=== PATIENT | male | born 1980 | race American Indian/Alaskan Native ===

== ENCOUNTER 2020-03-13 11:14 | Emergency (ER) | payer BC ==
[2020-03-13] MEDS ORDERED: Orphenadrine 100 MG Tab.ER PO ONE (11:42)
[2020-03-13] MEDS ORDERED: Ketorolac 30 MG/ML SDV IM ONE (11:42)
--- NOTE | 2020-03-13 11:51 | EDM.PDOC ---
ED HPI GENERAL MEDICAL PROBLEM - General Chief Complaint: Back Pain or Injury Stated Complaint: [facility] Time Seen by Provider: 03/13/20 11:23 Source of Information: Reports: Patient, EMS Notes Reviewed, RN Notes Reviewed History Limitations: Reports: No Limitations - History of Present Illness INITIAL COMMENTS - FREE TEXT/NARRATIVE: Patient is a 39-year-old male who presents to the ED via [facility] for the evaluation of his lower back pain. Patient notes that around 7 this morning, he was putting the garbage into the dumpster; they had a junk TV, he went to lift his TV and thought it was heavier than it was, and he threw it over his head with a little excessive force due to the lightness, and then he states he felt a pinch or twinge in his back. He has been having pain in his lower mid back ever since then, he points to right about the top of his hip bones at this time. He has no numbness or tingling into his extremities, the pain does not seem to radiate anywhere. He does state that he went home and laid on his bed for a while, but then he found it difficult to get up and move. He did not take any pain medications prior to coming to the ER he states that he has had issues like this once before in the past. He denies any other sick-like symptoms, fever/chills, cough/shortness of breath, nausea/vomiting/diarrhea. He notes that this pain is more of a cramping/squeezing/gripping type pain rather than a sharp stabbing pain. - Related Data Allergies Allergy/AdvReac Type Severity Reaction Status Date / Time No Known Allergies Allergy Verified 03/13/20 11:18 Home Meds: Home Meds Orphenadrine [Norflex] 100 mg PO BID PRN #20 tab 03/13/20 [Rx] traMADol [Ultram] 50 mg PO Q6H PRN #20 tab 03/13/20 [Rx] Past Medical History Musculoskeletal History: Reports: Back Pain, Chronic Social & Family History - Family History Family Medical History: Noncontributory - Tobacco Use Smoking Status *Q: Former Smoker Years of Tobacco use: 18 Packs/Tins Daily: 1 Used Tobacco, but Quit: Yes Month/Year Tobacco Last Used: 02/15/2020 ED ROS GENERAL - Review of Systems Review Of Systems: Comprehensive ROS is negative, except as noted in HPI. ED EXAM,LOWER BACK PAIN/INJURY - Physical Exam Exam: See Below Exam Limited By: No Limitations General Appearance: Alert, WD/WN, No Apparent Distress Eye Exam: Bilateral Eye: EOMI, Normal Inspection, PERRL Respiratory/Chest: No Respiratory Distress, Lungs Clear, Normal Breath Sounds, No Accessory Muscle Use, Chest Non-Tender Cardiovascular: Normal Peripheral Pulses, Regular Rate, Rhythm, No Murmur GI/Abdominal: Normal Bowel Sounds, Soft, Non-Tender, No Distention, No Mass Extremities: Normal Inspection, Normal Capillary Refill Neurological: Alert, Normal Mood/Affect, Normal Dorsiflexion, Normal Plantar Flexion, No Motor/Sensory Deficits, Oriented x 3. No: Straight Leg Raise (L), Straight Leg Raise (R), Saddle Anesthesia Psychiatric: Normal Affect, Normal Mood Skin Exam: Warm, Dry, Intact, Normal Color, No Rash Course - Vital Signs Last Recorded V/S: Last Vital Signs Temp 98.7 F 03/13/20 11:15 Pulse 78 03/13/20 11:15 Resp 18 03/13/20 11:15 BP 170/100 H 03/13/20 11:15 Pulse Ox 98 03/13/20 11:15 - Orders/Labs/Meds Meds: Medications Discontinued Medications Generic Name Dose Route Start Last Admin Trade Name Corinne PRN Reason Stop Dose Admin Ketorolac Tromethamine 60 mg 03/13/20 11:42 03/13/20 11:51 Toradol IM 03/13/20 11:43 60 mg ONETIME ONE Administration Ketorolac Tromethamine Confirm 03/13/20 11:53 03/13/20 12:06 Toradol Administered 03/13/20 11:54 Not Given Dose 30 mg .ROUTE .STK-MED ONE Orphenadrine Citrate 100 mg 03/13/20 11:42 03/13/20 11:51 Norflex PO 03/13/20 11:43 100 mg ONETIME ONE Administration Tramadol HCl 50 mg 03/13/20 12:47 03/13/20 13:01 Ultram PO 03/13/20 12:48 50 mg ONETIME ONE Administration - Re-Assessments/Exams Free Text/Narrative Re-Assessment/Exam: 03/13/20 11:52 Patient presents to the ED for the evaluation of his back pain. I do highly believe that he probably strained a muscle in his back causing issues. Have ordered Toradol and Norflex for initial management. Will reassess once the meds have been given time to work. 03/13/20 12:47 Patient was reassessed at bedside, and states that his pain is a little bit better, but he still having difficulty moving around much at all. I have ordered 50 mg p.o. tramadol for ongoing pain management to see if this helps h im. 03/13/20 13:30 Patient reported more relief with the tramadol. He was able to move a little bit more in the room. We will discharge him home with a prescription for tramadol, and Norflex and given a work note for this week. Departure - Departure Time of Disposition: 13:35 Disposition: Home, Self-Care 01 Condition: Good Clinical Impression: Low back pain Qualifiers: Chronicity: acute Back pain laterality: left Sciatica presence: without sciatica Qualified Code(s): M54.5 - Low back pain - Discharge Information *PRESCRIPTION DRUG MONITORING PROGRAM REVIEWED*: Yes *COPY OF PRESCRIPTION DRUG MONITORING REPORT IN PATIENT JG: No Instructions: Back Injury Prevention, [id number], Acute Back Pain, Adult Forms: ED Department Discharge, ED Return to Work/School Form Additional Instructions: You have been evaluated in the ED for your low back pain. Your symptoms are most likely musculoskeletal strain in nature. You were given a prescription for Norflex, a muscle relaxer, please take as directed. Please use ice/heat as tolerated to the affected area. You may take Tylenol 500 mg or ibuprofen 600mg q6 hrs for pain relief. Please do so until you have a tolerable level of pain with activity. Do not exceed 4000mg Tylenol or 3200mg ibuprofen in a 24 hour time period. You were given a prescription for a strong pain medication, Tramadol 50mg, please take 1 tab every 6 hours as needed for pain not relieved by Tylenol or ibuprofen alone. These medications can be addictive, so please take as few as possible to achieve adequate pain control. These meds can also be quite constipating, recommend that you increase your oral fluid intake and take a stool softener like MiraLAX while taking these medications. Do not drive while taking this medication. Please return to ED if your symptoms should change or worsen. Sepsis Event Note (ED) - Evaluation Sepsis Screening Result: No Definite Risk - Focused Exam Vital Signs: Vital Signs Temp Pulse Resp BP Pulse Ox 03/13/20 11:15 98.7 F 78 18 170/100 H 98
[2020-03-13] MEDS ORDERED: Ketorolac 30 MG/ML SDV ONE (11:53)
[2020-03-13] MEDS ORDERED: traMADol 50 MG Tab PO ONE (12:47)
== END 2020-03-13 13:50 | disposition home or self-care (01) ==
LOC: JD.ED 11:14
DX: M54.5 Low back pain (principal); Z87.891 Personal history of nicotine dependence
CPT/HCPCS: 96372; 99284; A9270; J1885; 99283

== ENCOUNTER 2021-01-08 18:23 | Emergency (ER) | payer BC, OTHER ==
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
== END 2021-01-08 20:00 | disposition home or self-care (01) ==
LOC: JD.ED 18:23
DX: Z04.1 Encounter for examination and observation following transport accident (principal); Z72.0 Tobacco use
CPT/HCPCS: 99282

== ENCOUNTER 2022-08-19 17:08 | Emergency (ER) | payer SELFPAY ==
[2022-08-19] MEDS ORDERED: HYDROmorphone 1 MG/ML Syringe IM ONE (18:00)
[2022-08-19] MEDS ORDERED: Lidocaine 1% 10 ML MDV INJECT ONE (18:00)
== END 2022-08-19 19:29 | disposition home or self-care (01) ==
LOC: JD.ED 17:08
DX: S52.502A Unspecified fracture of the lower end of left radius, initial encounter for closed fracture (principal); S52.612A Displaced fracture of left ulna styloid process, initial encounter for closed fracture; W00.0XXA Fall on same level due to ice and snow, initial encounter; Y93.01 Activity, walking, marching and hiking; Y92.009 Unspecified place in unspecified non-institutional (private) residence as the place of occurrence of the external cause
CPT/HCPCS: 29125; 73110-26-LT; 73110-LT; 99283

== ENCOUNTER 2022-09-03 15:48 | Emergency (ER) | payer SELFPAY ==
[2022-09-03] MEDS ORDERED: Sodium Chloride 0.9% 10 ML Syringe FLUSH PRN (16:08)
[2022-09-03] MEDS ORDERED: Sodium Chloride 0.9% 1,000 ML IV STA ×2 (16:19→17:51)
[2022-09-03] MEDS ORDERED: Insulin Regular, Human 100 Units/ML 3 ML Vial SUBCUT ONE (17:31)
[2022-09-03 17:33] LABS: HEMOGLOBIN A1C 11.9 %
[2022-09-03] MEDS ORDERED: Insulin Glargine,Human Rec. Analog 100 Units/ML 3 ML Pen SUBCUT ONE (19:52)
== END 2022-09-03 20:13 | disposition home or self-care (01) ==
LOC: JD.ED 15:48
DX: E11.65 Type 2 diabetes mellitus with hyperglycemia (principal); Z87.891 Personal history of nicotine dependence; Z79.84 Long term (current) use of oral hypoglycemic drugs
CPT/HCPCS: 36415; 80053; 81001; 82009; 82947; 83036; 85025; 96360; 96361; 99283; J1815; J3490; J7030

== ENCOUNTER 2022-10-14 21:52 | Emergency (ER) | payer SELFPAY | END 2022-10-14 22:45 | disposition home or self-care (01) | LOC: MERGE 21:52 → JD.ED 21:52 | DX: F10.10 Alcohol abuse, uncomplicated (principal) | CPT/HCPCS: 99283 ==

== ENCOUNTER 2023-01-07 13:51 | Emergency (ER) | payer MEDICAID, OTHER ==
[2023-01-07 14:29] LABS: BASOPHILS ABSOLUTE AUTO 0.01 K/mm3 (0.01-0.08); BASOPHILS PERCENT AUTO 0.2 % (0.1-1.2); EOSINOPHILS ABSOLUTE AUTO 0.11 K/mm3 (0.04-0.54); EOSINOPHILS PERCENT AUTO 2.4 (0.8-7.0); HEMATOCRIT 47.8 % (40.1-51.0); HEMOGLOBIN 17.1 gm/dl (13.7-17.5); IMMATURE GRAN ABSOLUTE AUTO 0.01 K/mm3 (0.00-0.10); IMMATURE GRAN PERCENT AUTO 0.2 % (<=1.0); LYMPHOCYTES ABSOLUTE AUTO 0.97 K/mm3 (1.32-3.57); LYMPHOCYTES PERCENT AUTO 20.9 % (21.8-53.1); MEAN CORPUSCULAR HEMOGLOBIN 30.9 pg (25.7-32.2); MEAN CORPUSCULAR HGB CONC 35.8 g/dl (32.2-35.5); MEAN CORPUSCULAR VOLUME 86.3 fl (79.0-92.2); MEAN PLATELET VOLUME 9.8 fl (9.4-12.3); MONOCYTES ABSOLUTE AUTO 0.39 K/mm3 (0.30-0.82); MONOCYTES PERCENT AUTO 8.4 % (5.3-12.2); NEUTROPHILS ABSOLUTE AUTO 3.16 K/mm3 (1.78-5.38); NEUTROPHILS PERCENT AUTO 67.9 % (34.0-67.9); PLATELET COUNT,PLT 222 K/mm3 (163-337); RED BLOOD CELL COUNT 5.54 M/mm3 (4.63-6.08); WHITE BLOOD CELL COUNT,WBC 4.65 K/mm3 (4.23-9.07)
[2023-01-07] MEDS ORDERED: Aspirin 81 MG Tab.Chew PO ONE (14:39)
[2023-01-07 14:43] LABS: ALANINE AMINOTRANSFERASE,ALT 36 U/L (16-63); ALBUMIN 3.7 g/dl (3.4-5.0); ALKALINE PHOSPHATASE 134 U/L (46-116); ANION GAP 13.3 (5-15); ASPARTATE AMNIOTRANSFERASE,AST 40 U/L (15-37); BILIRUBIN TOTAL 1.8 mg/dL (0.2-1.0); BLOOD UREA NITROGEN,BUN 5 mg/dL (7-18); BUN/CREATININE RATIO 7.1 (14-18); CALCIUM 9.2 mg/dL (8.5-10.1); CARBON DIOXIDE,CO2 26 mEq/L (21-32); CHLORIDE,CL 95 mEq/L (98-107); CREATININE 0.7 mg/dL (0.7-1.3); ESTIMATED GFR 117 mL/min (>60); MAGNESIUM 1.8 mg/dL (1.8-2.4); POTASSIUM,K 3.3 mEq/L (3.5-5.1); PROTEIN TOTAL,TP 7.5 g/dl (6.4-8.2); SODIUM,NA 131 mEq/L (136-145)
[2023-01-07 14:44] LABS: GLUCOSE RANDOM 505 mg/dL (70-99); INR 0.97; PROTHROMBIN TIME 10.4 SECONDS (9.7-12.0); TROPONIN I HIGH SENSITIVITY < 4 pg/mL (<=76)
[2023-01-07] MEDS ORDERED: Sodium Chloride 0.9% 1,000 ML IV ONE (14:56)
[2023-01-07] MEDS ORDERED: Insulin Regular, Human 100 Units/ML 3 ML Vial SUBCUT ONE (16:04)
== END 2023-01-07 16:25 | disposition home or self-care (01) ==
LOC: JD.ED 13:51
DX: R07.89 Other chest pain (principal); E11.65 Type 2 diabetes mellitus with hyperglycemia; Z79.84 Long term (current) use of oral hypoglycemic drugs
CPT/HCPCS: 36415; 71045; 80053; 82009; 82800; 83735; 83930; 84484; 85025; 85610; 93005; 96360; 99285; A9270; J1815; J7030; 93010; 99284

== ENCOUNTER 2023-01-15 16:19 | Emergency (ER) | payer MEDICAID ==
[2023-01-15 16:57] LABS: BASOPHILS ABSOLUTE AUTO 0.03 K/mm3 (0.01-0.08); BASOPHILS PERCENT AUTO 0.5 % (0.1-1.2); EOSINOPHILS PERCENT AUTO 1.7 (0.8-7.0); HEMATOCRIT 44.1 % (40.1-51.0); HEMOGLOBIN 15.7 gm/dl (13.7-17.5); IMMATURE GRAN ABSOLUTE AUTO 0.01 K/mm3 (0.00-0.10); IMMATURE GRAN PERCENT AUTO 0.2 % (<=1.0); LYMPHOCYTES ABSOLUTE AUTO 2.43 K/mm3 (1.32-3.57); MEAN CORPUSCULAR HGB CONC 35.6 g/dl (32.2-35.5); MEAN PLATELET VOLUME 9.4 fl (9.4-12.3); MONOCYTES PERCENT AUTO 13.5 % (5.3-12.2); NEUTROPHILS ABSOLUTE AUTO 2.55 K/mm3 (1.78-5.38); NEUTROPHILS PERCENT AUTO 43.1 % (34.0-67.9); PLATELET COUNT,PLT 262 K/mm3 (163-337); WHITE BLOOD CELL COUNT,WBC 5.92 K/mm3 (4.23-9.07)
[2023-01-15 17:07] LABS: A/G RATIO 1.1 (1-2); ALANINE AMINOTRANSFERASE,ALT 71 U/L (16-63); ALBUMIN 3.8 g/dl (3.4-5.0); ALKALINE PHOSPHATASE 170 U/L (46-116); ANION GAP 13.2 (5-15); ASPARTATE AMNIOTRANSFERASE,AST 31 U/L (15-37); BILIRUBIN TOTAL 0.8 mg/dL (0.2-1.0); BLOOD UREA NITROGEN,BUN 6 mg/dL (7-18); BUN/CREATININE RATIO 6.7 (14-18); CALCIUM 8.6 mg/dL (8.5-10.1); CARBON DIOXIDE,CO2 28 mEq/L (21-32); CHLORIDE,CL 99 mEq/L (98-107); CREATININE 0.9 mg/dL (0.7-1.3); EST CRCL DRUG DOSING (CG) 109.27 mL/min; ESTIMATED GFR 109 mL/min (>60); GLUCOSE RANDOM 291 mg/dL (70-99); POTASSIUM,K 3.2 mEq/L (3.5-5.1); PROTEIN TOTAL,TP 7.3 g/dl (6.4-8.2); SODIUM,NA 137 mEq/L (136-145)
[2023-01-15 17:13] LABS: TROPONIN I HIGH SENSITIVITY < 4 pg/mL (<=76)
[2023-01-15] MEDS ORDERED: Ketorolac 30 MG/ML SDV IVPUSH ONE (17:37)
== END 2023-01-15 17:45 | disposition home or self-care (01) ==
LOC: JD.ED 16:19
DX: R07.9 Chest pain, unspecified (principal); E11.9 Type 2 diabetes mellitus without complications; Z79.84 Long term (current) use of oral hypoglycemic drugs
CPT/HCPCS: 36415; 71045; 71045-26; 80053; 84484; 85025; 93005; 93010; 99284; 99285

== ENCOUNTER 2023-02-15 18:17 | Emergency (ER) | payer SELFPAY ==
[2023-02-15] MEDS ORDERED: Sodium Chloride 0.9% 10 ML Syringe FLUSH PRN (19:06)
[2023-02-15 19:12] LABS: BASOPHILS PERCENT AUTO 0.8 % (0.0-1.0); EOSINOPHILS ABSOLUTE AUTO 0.2 K/mm3 (0.0-0.4); EOSINOPHILS PERCENT AUTO 4.2 % (0.0-6.0); HEMATOCRIT 41.7 % (42.0-52.0); HEMOGLOBIN 14.8 gm/dl (14.0-18.0); IMMATURE GRAN ABSOLUTE AUTO 0.01 K/mm3 (0.00-0.05); IMMATURE GRAN PERCENT AUTO 0.2 % (0.0-0.4); LYMPHOCYTES ABSOLUTE AUTO 1.5 K/mm3 (1.0-4.8); LYMPHOCYTES PERCENT AUTO 30.3 % (24.0-44.0); MEAN CORPUSCULAR HEMOGLOBIN 31.8 pg (28.0-32.0); MEAN CORPUSCULAR HGB CONC 35.5 g/dl (32.0-36.0); MEAN CORPUSCULAR VOLUME 89.7 fl (83.0-99.0); MEAN PLATELET VOLUME 9.6 fl (9.4-12.4); MONOCYTES ABSOLUTE AUTO 0.6 K/mm3 (0.0-0.8); MONOCYTES PERCENT AUTO 11.5 % (0.0-8.0); NEUTROPHILS ABSOLUTE AUTO 2.5 K/mm3 (1.8-7.7); PLATELET COUNT,PLT 185 K/mm3 (150-400); RED BLOOD CELL COUNT 4.65 M/mm3 (4.52-5.90); WHITE BLOOD CELL COUNT,WBC 4.78 K/mm3 (3.9-11.3)
[2023-02-15 19:20] LABS: INR 0.94; PROTHROMBIN TIME 10.1 SECONDS (9.7-12.0)
[2023-02-15 19:23] LABS: D-DIMER QUANTITATIVE < 0.19 mg/L (0.19-0.50)
[2023-02-15 19:30] LABS: A/G RATIO 1.1 (1-2); ALANINE AMINOTRANSFERASE,ALT 96 U/L (16-63); ALBUMIN 3.6 g/dl (3.4-5.0); ALKALINE PHOSPHATASE 130 U/L (46-116); ANION GAP 12.7 (5-15); ASPARTATE AMNIOTRANSFERASE,AST 62 U/L (15-37); BILIRUBIN TOTAL 0.4 mg/dL (0.2-1.0); BLOOD UREA NITROGEN,BUN 8 mg/dL (7-18); BUN/CREATININE RATIO 11.4 (14-18); CALCIUM 8.5 mg/dL (8.5-10.1); CARBON DIOXIDE,CO2 25 mEq/L (21-32); CHLORIDE,CL 105 mEq/L (98-107); CREATININE 0.7 mg/dL (0.7-1.3); ESTIMATED GFR 117 mL/min (>60); GLUCOSE RANDOM 196 mg/dL (70-99); MAGNESIUM 1.9 mg/dL (1.8-2.4); PROTEIN TOTAL,TP 6.9 g/dl (6.4-8.2); SODIUM,NA 139 mEq/L (136-145)
[2023-02-15 19:31] LABS: TROPONIN I HIGH SENSITIVITY < 4 pg/mL (<=76)
[2023-02-15 19:33] LABS: POTASSIUM,K 3.7 mEq/L (3.5-5.1)
== END 2023-02-15 20:01 | disposition home or self-care (01) ==
LOC: JD.ED 18:17
DX: R07.89 Other chest pain (principal); E11.9 Type 2 diabetes mellitus without complications; Z79.84 Long term (current) use of oral hypoglycemic drugs
CPT/HCPCS: 36415; 80053; 83735; 84484; 85025; 85379; 85610; 93005; 99285; J3490

== ENCOUNTER 2023-11-16 13:57 | Emergency (ER) | payer SELFPAY | END 2023-11-16 15:25 | disposition home or self-care (01) | LOC: JD.ED 13:57 | DX: S09.90XA Unspecified injury of head, initial encounter (principal); M54.2 Cervicalgia; E11.9 Type 2 diabetes mellitus without complications; Z79.899 Other long term (current) drug therapy; Y04.8XXA Assault by other bodily force, initial encounter | CPT/HCPCS: 70450; 70450-26; 72125; 72125-26; 99284 ==

== ENCOUNTER 2023-12-04 16:12 | Emergency (ER) | payer SELFPAY | END 2023-12-04 16:46 | disposition home or self-care (01) | LOC: JD.ED 16:12 | DX: S01.01XD Laceration without foreign body of scalp, subsequent encounter (principal); X58.XXXD Exposure to other specified factors, subsequent encounter | CPT/HCPCS: 99281 ==

== ENCOUNTER 2024-05-26 14:32 | Emergency (ER) | payer SELFPAY ==
[2024-05-26] MEDS ORDERED: Fluorescein 1 MG Ophth Strip EYELF ONE (15:33)
[2024-05-26] MEDS ORDERED: Proparacaine 0.5% Ophth Soln 15 ML Bottle EYELF ONE (15:34)
== END 2024-05-26 16:21 | disposition home or self-care (01) ==
LOC: JD.ED 14:32
DX: S05.02XA Injury of conjunctiva and corneal abrasion without foreign body, left eye, initial encounter (principal); K04.7 Periapical abscess without sinus; E11.9 Type 2 diabetes mellitus without complications; F17.210 Nicotine dependence, cigarettes, uncomplicated; Z79.899 Other long term (current) drug therapy; X58.XXXA Exposure to other specified factors, initial encounter
CPT/HCPCS: 99283; J3490

== ENCOUNTER 2024-07-04 18:01 | Emergency (ER) | payer SELFPAY ==
[2024-07-04 19:27] LABS: APPEARANCE,URINE CLEAR (Clear); BILIRUBIN,URINE NEGATIVE (Negative); COLOR,URINE YELLOW (Yellow); GLUCOSE,URINE 2+ (Negative); KETONES,URINE NEGATIVE (Negative); LEUKOCYTE ESTERASE,URINE NEGATIVE (Negative); NITRITE,URINE NEGATIVE (Negative); OCCULT BLOOD,URINE NEGATIVE (Negative); PROTEIN,URINE TRACE (Negative)
[2024-07-04 19:35] LABS: BACTERIA,URINE FEW /hpf (FEW); EPITHELIAL CELLS,URINE 0-5 /hpf (0-5); MUCUS,URINE NOT SEEN /hpf (FEW); RBC,URINE 0-5 /hpf (0-5); WBC,URINE 0-5 /hpf (0-5)
== END 2024-07-04 21:09 | disposition home or self-care (01) ==
LOC: JD.ED 18:01
DX: S22.31XA Fracture of one rib, right side, initial encounter for closed fracture (principal); E11.9 Type 2 diabetes mellitus without complications; W00.0XXA Fall on same level due to ice and snow, initial encounter
CPT/HCPCS: 71101-26-RT; 71101-RT; 81001; 99283

== ENCOUNTER 2024-11-16 13:33 | Emergency (ER) | payer OTHER ==
[2024-11-16 14:11] LABS: BASOPHILS PERCENT AUTO 0.3 % (0.0-1.0); EOSINOPHILS ABSOLUTE AUTO 0.2 K/mm3 (0.0-0.4); EOSINOPHILS PERCENT AUTO 2.1 % (0.0-6.0); HEMATOCRIT 47.2 % (42.0-52.0); IMMATURE GRAN ABSOLUTE AUTO 0.02 K/mm3 (0.00-0.05); IMMATURE GRAN PERCENT AUTO 0.3 % (0.0-0.4); LYMPHOCYTES ABSOLUTE AUTO 1.9 K/mm3 (1.0-4.8); LYMPHOCYTES PERCENT AUTO 26.3 % (24.0-44.0); MEAN CORPUSCULAR HEMOGLOBIN 30.8 pg (28.0-32.0); MEAN CORPUSCULAR VOLUME 85.5 fl (83.0-99.0); MEAN PLATELET VOLUME 9.8 fl (9.4-12.4); MONOCYTES ABSOLUTE AUTO 0.5 K/mm3 (0.0-0.8); MONOCYTES PERCENT AUTO 6.9 % (0.0-8.0); NEUTROPHILS ABSOLUTE AUTO 4.6 K/mm3 (1.8-7.7); NEUTROPHILS PERCENT AUTO 64.1 % (41.0-71.0); PLATELET COUNT,PLT 257 K/mm3 (150-400); RED BLOOD CELL COUNT 5.52 M/mm3 (4.52-5.90)
[2024-11-16 14:37] LABS: A/G RATIO 0.9 (1-2); ALANINE AMINOTRANSFERASE,ALT 51 U/L (16-63); ALBUMIN 3.5 g/dl (3.4-5.0); ALKALINE PHOSPHATASE 192 U/L (46-116); ANION GAP 12.6 (5-15); ASPARTATE AMNIOTRANSFERASE,AST 34 U/L (15-37); BILIRUBIN TOTAL 0.8 mg/dL (0.2-1.0); BLOOD UREA NITROGEN,BUN 10 mg/dL (7-18); BUN/CREATININE RATIO 12.5 (14-18); CALCIUM 9.5 mg/dL (8.5-10.1); CARBON DIOXIDE,CO2 29 mEq/L (21-32); CHLORIDE,CL 95 mEq/L (98-107); CREATININE 0.8 mg/dL (0.7-1.3); EST CRCL DRUG DOSING (CG) 106.61 mL/min; ESTIMATED GFR 111 mL/min (>60); POTASSIUM,K 4.6 mEq/L (3.5-5.1); PROTEIN TOTAL,TP 7.4 g/dl (6.4-8.2); SODIUM,NA 132 mEq/L (136-145)
[2024-11-16 14:39] LABS: GLUCOSE RANDOM 507 mg/dL (70-99); TROPONIN I HIGH SENSITIVITY < 4 pg/mL (<=76)
[2024-11-16] MEDS: Sodium Chloride 0.9% 1,000 ML IV ONE ×2 (15:04→16:07)
[2024-11-16] MEDS: Insulin Regular, Human 100 Units/ML 10 ML Vial SUBCUT ONE (15:04)
[2024-11-16] MEDS: Ketorolac 30 MG/ML SDV IVPUSH ONE (15:05)
[2024-11-16 16:21] LABS: APPEARANCE,URINE CLEAR (Clear); BILIRUBIN,URINE NEGATIVE (Negative); COLOR,URINE YELLOW (Yellow); GLUCOSE,URINE 3+ (Negative); KETONES,URINE NEGATIVE (Negative); LEUKOCYTE ESTERASE,URINE NEGATIVE (Negative); NITRITE,URINE NEGATIVE (Negative); OCCULT BLOOD,URINE NEGATIVE (Negative); PROTEIN,URINE NEGATIVE (Negative)
== END 2024-11-16 17:40 | disposition home or self-care (01) ==
LOC: JD.ED 13:33
DX: R07.81 Pleurodynia (principal); E11.65 Type 2 diabetes mellitus with hyperglycemia; Z79.4 Long term (current) use of insulin
CPT/HCPCS: 36415; 71045; 80053; 81003; 82010; 82947; 83930; 84484; 85025; 93005; 96361; 96374; 99285; J1815; J1885; J7030; 93010; 99284